=== PATIENT | male | born 1995 | race Caucasian/White ===

== ENCOUNTER 2023-12-07 16:26 | Emergency (ER) | payer OTHER ==
[~2023-12-07] VITALS: Ht 165.1 cm; Wt 65.9 kg
[2023-12-07 16:44] VITALS: BP 116/70; PULSE 81; RESP 16; TEMP 98.3; O2SAT 98
[2023-12-07 16:53] LABS: BASOPHILS % (AUTO) 0.3 % (0.0-2.0); EOSINOPHILS % (AUTO) 0.7 % (1.0-6.0); HEMATOCRIT 42.9 % (41-53); HEMOGLOBIN 14.3 g/dL (13.5-17.5); LYMPHOCYTES # (AUTO) 1.8 K/uL (1.0-4.8); LYMPHOCYTES % (AUTO) 13.6 % (22.0-44.0); MEAN CORPUSCULAR HEMOGLOBIN 30.7 pg (26.0-34.0); MEAN CORPUSCULAR HGB CONC 33.4 G/dL (31.0-37.0); MEAN CORPUSCULAR VOLUME 92 fL (80-100); MONOCYTES # (AUTO) 0.7 K/uL (0.1-1.0); NEUTROPHILS # (AUTO) 10.7 K/uL (1.8-7.7); NEUTROPHILS % (AUTO) 80.4 % (40.0-70.0); PLATELET COUNT (AUTO) 225 K/uL (150-450); RED BLOOD CELL COUNT(AUTO) 4.67 MIL/uL (4.50-5.90); RED CELL DISTRIBUTION WIDTH 12.8 % (11.5-14.5); WHITE BLOOD COUNT (AUTO) 13.3 K/uL (4.5-11.0)
[2023-12-07 17:01] LABS: ANION GAP 10 mmol/L (8-16); CALCIUM, TOTAL 8.5 mg/dL (8.8-10.5); CARBON DIOXIDE 27 mmol/L (22-29); CHLORIDE 103 mmol/L (98-107); CREATININE 0.93 mg/dL (0.60-1.30); GLOMERULAR FILTR. RATE CALC > 60 mL/min (>60); GLUCOSE,RANDOM 152 mg/dL (70-110); SODIUM SERUM 140 mmol/L (136-145); UREA NITROGEN, BLOOD 16 mg/dL (7-18)
[2023-12-07] MEDS: ACETAMINOPHEN 500 MG TABLET PO ONE (17:04)
[2023-12-07 17:06] LABS: ALANINE AMINOTRANSFERASE 46 U/L (12-78); ALBUMIN 3.6 g/dL (3.4-5.0); ALKALINE PHOSPHATASE 57 U/L (46-116); ASPARTATE AMINOTRANSFERASE 302 U/L (15-37); BILIRUBIN,TOTAL 0.5 mg/dL (0.1-1.0); TOTAL PROTEIN, SERUM 6.2 g/dL (6.4-8.2)
[2023-12-07] MEDS ORDERED: SODIUM CHLORIDE 0.9% 100 ML ONE (17:21)
[2023-12-07] MEDS ORDERED: IOHEXOL 350 MG/ML 100 ML VIAL ONE (17:21)
== END 2023-12-07 19:46 | disposition home or self-care (01) ==
LOC: EMS 16:26 → EDBD 16:26 → EMS 19:46
DX: S40.011A Contusion of right shoulder, initial encounter (principal); S70.01XA Contusion of right hip, initial encounter; S09.90XA Unspecified injury of head, initial encounter; F32.A Depression, unspecified; Y04.8XXA Assault by other bodily force, initial encounter; Y93.89 Activity, other specified; Y92.89 Other specified places as the place of occurrence of the external cause; Y99.8 Other external cause status
CPT/HCPCS: 99285; 70450; 71045; 80053; 85025; 36415; 73030; 73502; 71260; 72125; 72129; 72132; 74177; Q9967; J7050; 72193; 74160

== ENCOUNTER → 2025-02-26 | Emergency (ER) | payer MEDICAID, OTHER ==
[~2025-02-26] VITALS: Ht 172.7 cm; Wt 81.8 kg
[~2025-02-26] MED LIST: IBUPROFEN 600 MG TABLET PO ONE
[2025-02-26 18:41] VITALS: BP 142/75; PULSE 73; RESP 18; TEMP 98.1; O2SAT 98
== END | disposition home or self-care (01) ==
LOC: EMS 18:53
DX: M54.50 Low back pain, unspecified (principal); F32.A Depression, unspecified
CPT/HCPCS: 99282; Z7502; Z7610